=== PATIENT | female | born 1955 ===

== ENCOUNTER 2023-09-03 07:54 | Outpatient (CLI) | payer MEDICARE, SELFPAY ==
--- NOTE | ~2023-09-03 | MR_ITS ---
EXAMINATION: MR knee LT wo con DATE: 09/03/2023 09:04 INDICATION: Medial meniscal tear TECHNIQUE: Magnetic resonance imaging (MRI) of the left knee was performed without intravenous contra st. Sequences included coronal PD-weighted FSE, coronal PD-weighted FS FSE, sagittal T2-weighted FSE , sagittal PD-weighted FS FSE and axial PD weighted fat saturated FSE. COMPARISON: None. FINDINGS: Medial compartment: Small longitudinal horizontal tear extending intra-articular surface near the free edge of the medial meniscal body. Articular cartilage is normal. Lateral compartment: Lateral meniscus is normal. Articular cartilage is normal. Patellofemoral compartment: There is deep chondral ulceration and fissuring at the patellar apical ridge and immediately adjacent medial patellar facet with small focus of underlying subarticular edema-like signal change. Addition al with severe partial thickness chondral ulceration with additional deep fissuring and tiny focus of subarticular edema-like signal change at the inferior aspect of the lateral patellar facet. Partial- thickness chondral ulceration at the inferior trochlear groove and medial trochlea with tiny focus of underlying subarticular edema-like signal change. Ligaments and tendons: Anterior and posterior cruciate ligaments are normal. The medial collateral ligament and fibular hood ateral ligament complex are normal. Patellar tendon is normal. Mild distal quadriceps tendinopathy. T he visualized medial and lateral hamstring tendons as well as the iliotibial band are normal. Fluid: Small knee joint effusion at the suprapatellar pouch. No loose osteochondral bodies identified. Osseous/other: Bone alignment is normal. No fracture or pathologic marrow replacing process. IMPRESSION: 1. Small longitudinal horizontal tear at the body of the medial meniscus. 2. 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 Reviewed, dictated and finalized at location B. IMPRESSION: 1. Small longitudinal horizontal tear at the body of the medial meniscus. 2. Mild osteoarthritis with moderate and high-grade chondromalacia at the lewis lofemoral compartment.
== END 2023-09-03 07:55 ==
PROVIDERS: PCP Family Medicine; Visit Provider Family Medicine
DX: S83.242A Other tear of medial meniscus, current injury, left knee, initial encounter (principal); M17.12 Unilateral primary osteoarthritis, left knee; M22.42 Chondromalacia patellae, left knee; X58.XXXA Exposure to other specified factors, initial encounter
CPT/HCPCS: 73721

== ENCOUNTER 2023-12-22 10:28 | Outpatient (CLI) | payer MEDICARE, SELFPAY ==
--- NOTE | ~2023-12-22 | MR_ITS ---
EXAMINATION: MR hip LT wo con DATE: 12/22/2023 11:47 INDICATION: Left hip pain TECHNIQUE: Magnetic resonance imaging (MRI) of the left hip was performed without intravenous contra st. Sequences included full-field axial PD-weighted FS FSE and T1-weighted FSE, coronal of the pelvis with PD-weighted FS FSE, T2-weighted FSE and T1-weighted FSE, small field of view of the left hip wi th axial PD-weighted FS FSE, sagittal PD-weighted FS FSE, coronal PD-weighted FS FSE and coronal T2 weighted FSE. Additional radial T1-weighted FGR oriented orthogonal to the acetabular rim were obtain ed for evaluation of the labrum. COMPARISON: None FINDINGS: Bones/labrum/cartilage: Alignment is normal. No fracture, avascular necrosis or pathologic marrow replacing process. There i s a tear of the left acetabular labrum, relatively well-defined at the base of the superior labrum wi th associated small intraosseous and extraosseous paralabral cysts and with thickened and more amorph ous increased signal consistent with degenerative tearing at the posterior superior labrum. And mild osteoarthritis at the left hip with mild partial-thickness cartilage loss without degenerative subcho ndral changes along the posterior and superolateral aspects of the joint space. Fluid: Symmetric physiologic amount of fluid within both hip joints. Soft tissues: Normal and symmetric muscle bulk and signal in the pelvis and visualized proximal thighs. Bilateral i liopsoas tendons are normal. There is mild tendinopathy without tear at the left ischial tuberosity o rigin of the proximal left hamstring tendons. Bilateral gluteal tendons are normal. There is moderate diverticulosis without adjacent from trace stranding along the sigmoid and descending colon. The lilia javi is not identified and has likely been surgically resected. Limited evaluation of visceral organs of the pelvis is otherwise unremarkable. No pathologically enlarged pelvic/inguinal lymphadenopathy. IMPRESSION: 1. Mild left hip osteoarthritis with tear of the superior to posterosuperior left acetabular labrum w ith associated small intraosseous and extraosseous paralabral cysts. 2. Mild tendinopathy without tear at the left ischial tuberosity origin of the proximal left hamstrin g tendons. Reviewed, dictated and finalized at location B. IMPRESSION: 1. Mild left hip osteoarthritis with tear of the superior to posterosuperior le ft acetabular labrum with associated small intraosseous and extraosseous parala bral cysts. 2. Mild tendinopathy without tear at the left ischial tuberosity origin of the proximal left hamstring tendons.
== END 2023-12-22 10:29 ==
LOC: GOSHIMG 10:31
PROVIDERS: PCP Family Medicine; Visit Provider Family Medicine
DX: M16.12 Unilateral primary osteoarthritis, left hip (principal); S73.192A Other sprain of left hip, initial encounter; M76.892 Other specified enthesopathies of left lower limb, excluding foot; X58.XXXA Exposure to other specified factors, initial encounter
CPT/HCPCS: 73721